=== PATIENT | male | born 1960 | race African-American/Black ===

== ENCOUNTER 2018-02-24 17:16 | Emergency (ER) | payer SELFPAY ==
[~2018-02-24] VITALS: Ht 177.8 cm; Wt 67.0 kg
[2018-02-24 17:36] VITALS: BP 123/94
== END 2018-02-24 20:34 | disposition left against medical advice (07) ==
LOC: ER 17:16
DX: K64.4 Residual hemorrhoidal skin tags (principal)
CPT/HCPCS: 99281